=== PATIENT | female | born 1980 | race Caucasian/White ===

== ENCOUNTER 2022-11-18 00:27 | Emergency (ER) | payer SELFPAY ==
[2022-11-18 00:38] VITALS: BP 127/77; PULSE 86; RESP 18; TEMP 98.8; BMI 18.3
[2022-11-18] MEDS ORDERED: ACETAMINOPHEN 1000 MG/100 ML BAG IVPB ONE (01:30)
[2022-11-18] MEDS ORDERED: DALBAVANCIN HCL 1,500 MG in DEXTROSE 5%-WATER - 500 ML IVPB ONE (01:30)
[2022-11-18] MEDS ORDERED: DALBAVANCIN HCL 500 MG VIAL (RESTRICTED TO ID ONLY) IVPB ONE (01:56)
[2022-11-18] MEDS ORDERED: ACETAMINOPHEN INJECTION 100 ML IVPB ONE (01:56)
[2022-11-18 02:53] LABS: BASO % 1.2 % (0-2.0); EOS % 3.7 % (0-4.5); HEMATOCRIT 36.8 % (32.4-45.2); HEMOGLOBIN 12.4 GM/dL (10.7-15.3); LYMPH % 30.7 % (8-40); MCH 31.6 pg (25.7-33.7); MCHC 33.6 g/dl (32.0-36.0); MEAN PLT VOLUME 8.4 fl (7.5-11.1); MONO % 9.8 % (3.8-10.2); NEUT % 54.6 % (42.8-82.8); PLATELET COUNT 224 10^3/uL (134-434); RBC 3.92 M/mm3 (3.60-5.2); RDW 18.4 % (11.6-15.6); WHITE BLOOD COUNT 5.1 K/mm3 (4.0-10.0)
[2022-11-18 03:01] LABS: INR 1.03 (0.83-1.09); PROTHROMBIN TIME (PATIENT) 11.9 SEC (9.7-13.0)
[2022-11-18] MEDS ORDERED: KETOROLAC TROMETHAMINE 15 MG/ML VIAL IVPUSH ONE (03:39)
[2022-11-18] MEDS ORDERED: KETOROLAC TROMETHAMINE 15 MG/ML VIAL ONE (03:40)
[2022-11-18 03:45] LABS: ERYTHROCYTE SEDIMENTATION RATE 11 mm/hr (0-20)
[2022-11-18] MEDS ORDERED: LIDOCAINE HCL 1%, 10 MG/ML (50 mL VIAL) SQ ONE (04:23)
[2022-11-18] MEDS ORDERED: LIDOCAINE HCL 1%, 10 MG/ML (10ML VIAL) MDV ONE (04:31)
[2022-11-18 04:55] LABS: CHLORIDE 100 mmol/L (98-107); POTASSIUM 3.1 mmol/L (3.5-5.1); SODIUM 144 mmol/L (136-145)
[2022-11-18 04:58] LABS: ALBUMIN 3.7 g/dl (3.4-5.0); ANION GAP 11 MMOL/L (8-16); BLOOD UREA NITROGEN 3.9 mg/dL (7-18); CALCIUM 8.6 mg/dL (8.5-10.1); CO2 33 mmol/L (21-32)
[2022-11-18 04:59] LABS: GLUCOSE,RANDOM 86 mg/dL (74-106)
[2022-11-18 05:01] LABS: SGPT/ALT 97 U/L (13-61)
[2022-11-18 05:02] LABS: CREATININE 0.5 mg/dL (0.55-1.3); SGOT/AST 408 U/L (15-37)
[2022-11-18 05:03] LABS: ALK PHOS 201 U/L (45-117); TOT PROT 7.4 g/dl (6.4-8.2)
[2022-11-18 05:06] LABS: N-TERMINAL BNP 89.7 pg/ml (5-125)
[2022-11-18] MEDS ORDERED: BACITRACIN ZINC 15 GM TUBE TOPICAL OINTMENT TP ONE (06:00)
[2022-11-18] MEDS ORDERED: BACITRACIN 0.9 GM PACKET ONE (06:03)
== END 2022-11-18 06:32 | disposition home or self-care (01) ==
LOC: JER 00:27
PROC: 3E033GC Introduction of Other Therapeutic Substance into Peripheral Vein, Percutaneous Approach (ICD-10-PCS; principal; 2022-11-18)
PROC: 3E033GC Introduction of Other Therapeutic Substance into Peripheral Vein, Percutaneous Approach (ICD-10-PCS; 2022-11-18)
PROC: 3E033GC Introduction of Other Therapeutic Substance into Peripheral Vein, Percutaneous Approach (ICD-10-PCS; 2022-11-18)
DX: S80.11XA Contusion of right lower leg, initial encounter (principal); R22.42 Localized swelling, mass and lump, left lower limb; R20.0 Anesthesia of skin; L03.114 Cellulitis of left upper limb; W22.8XXA Striking against or struck by other objects, initial encounter; Z20.822 Contact with and (suspected) exposure to COVID-19
CPT/HCPCS: 0241U-QW; 36415; 71046-TC-FY; 73590-TC-RT-FY; 73630-TC-RT-FY; 76882-TC-RT-FY; 80053; 83880; 84484; 84703; 85025; 85610; 85651; 85730; 86140; 93971-TC; 99285-25; J0875